=== PATIENT | female | born 1960 | race African-American/Black ===

== ENCOUNTER 2018-05-28 08:01 | Emergency (ER) | payer OTHER ==
[~2018-05-28] VITALS: Ht 142.2 cm; Wt 50.0 kg
[2018-05-28] MEDS ORDERED: IBUPROFEN 800 MG TABLET PO ONE (08:45)
[2018-05-28 15:00] VITALS: BP 140/71
== END 2018-05-28 15:30 | disposition home or self-care (01) ==
LOC: EMS 08:01
DX: M25.462 Effusion, left knee (principal); M25.562 Pain in left knee; F10.229 Alcohol dependence with intoxication, unspecified; I10 Essential (primary) hypertension; F31.9 Bipolar disorder, unspecified; F20.9 Schizophrenia, unspecified; F17.210 Nicotine dependence, cigarettes, uncomplicated; Z59.0 Homelessness; Y90.8 Blood alcohol level of 240 mg/100 ml or more; W01.0XXA Fall on same level from slipping, tripping and stumbling without subsequent striking against object, initial encounter; Y93.89 Activity, other specified; Y92.89 Other specified places as the place of occurrence of the external cause; Y99.8 Other external cause status
CPT/HCPCS: 36415; 73562; 99284; 99406; G0480